=== PATIENT | female | born 1960 | race Caucasian/White ===

== ENCOUNTER 2016-11-23 03:25 | Emergency (ER) | payer BC ==
[2016-11-23] MEDS ORDERED: ONDANSETRON HCL IV 4 MG/2 ML VIAL IV ONE (03:44)
[2016-11-23] MEDS ORDERED: MAGNESIUM HYDROXIDE/AL HYDROX 10.0001 ML, LIDOCAINE VISC 2% 200 MG, PHENOBARB/HYOSCY/AT... PO ONE ×3 (03:45)
--- NOTE | 2016-11-23 03:51 | Emergency Department Record ---
History of Present Illness - General Chief Complaint: Abdominal Pain Stated Complaint: ABD PAIN Time Seen by Provider: 11/23/16 03:44 Source: Patient Mode of Arrival: Ambulatory - History of Present Illness Initial Comments: 56 yo female presents with 3 weeks of upper abdominal discomfort, burping, belching. She has a history of reflux. This is very similar. She states that when she develops allergies symptoms or takes antibiotics it seems to flare up. She saw her PCP Tuesday regarding a sinus infection with drainage and was started on Zithromax. She discussed the abdominal symptoms and she states her PCP is referring her to a GI specialist given she has had this many times in the past and she has never seen a specialist or been scoped for inflammation. She is on Prilosec daily in the morning. PCP is Dr Radha FONTENOT Complaint: Abdominal pain Onset/Timin -: Week(s) Location: Epigastric Radiation: Epigastric Severity: Moderate Quality: Burning Consistency: Intermittent Improves With: Nothing Worsens With: Nothing Context: Recent antibiotic use Associated Symptoms: Anorexia - Related Data Patient : No Home Medications Medication Instructions Recorded Confirmed Last Taken Clonazepam [Clonazepam] 0.5 mg PO DAILY PRN 01/04/16 11/23/16 1 Day Ago Albuterol Sulfate [Proair Hfa] 1 - 2 puff IH .EVERY 4-6 HOURS PRN 04/11/1611/23 1 Day Ago Azithromycin [Zithromax] 500 mg PO DAILY 04/11/16 11/23/16 1 Day Ago Cetirizine HCl [Zyrtec] 10 mg PO DAILY 04/11/16 11/23/16 1 Day Ago Fluticasone Propionate [Flonase] 2 spray EACH NARES DAILY 11/23/16 11/23/16 Unknown Omeprazole [Prilosec] 20 mg PO DAILY 11/23/16 11/23/16 Unknown Prednisone [Prednisone 20Mg] 20 mg PO ASDIR 11/23/16 11/23/16 Unknown Allergies Allergy/AdvReac Type Severity Reaction Status Date / Time Penicillins Allergy RASH Verified 04/11/16 12:04 Travel Screening - Travel/Exposure Within Last 30 Days Have you traveled within the last 30 days?: No Review of Systems Constitutional: Denies: Chills, Fever, Malaise, Weakness Eyes: Denies: Eye discharge ENT: Denies: Congestion, Throat pain Respiratory: Denies: Cough Cardiovascular: Denies: Chest pain, Palpitations, Syncope Endocrine: Denies: Fatigue, Polydipsia, Polyuria Gastrointestinal: Reports: As per HPI, Abdominal pain, Nausea. Denies: Constipation, Diarrhea, Hematemesis, Hematochezia, Melena, Vomiting Genitourinary: Denies: Dysuria Musculoskeletal: Denies: Arthralgia, Back pain, Joint swelling, Myalgia Skin: Denies: Bruising, Change in color Neurological: Denies: Confusion, Headache Psychiatric: Denies: Anxiety Hematological/Lymphatic: Denies: Blood Clots, Easy bleeding, Easy bruising, Swollen glands Past Medical History - SOCIAL HISTORY Smoking Status: Current every day smoker Alcohol Use: None Drug Use: None - RESPIRATORY Hx Respiratory Disorders: Yes Comment:: seasonal allergies - CARDIOVASCULAR Hx Cardio Disorders: No - NEURO Hx Neuro Disorders: No - GI Hx GI Disorders: No - Hx Genitourinary Disorders: No - ENDOCRINE Hx Endocrine Disorders: No - MUSCULOSKELETAL Hx Musculoskeletal Disorders: Yes Hx Back Injury: Yes - PSYCH Hx Psych Problems: Yes Hx Anxiety: Yes - HEMATOLOGY/ONCOLOGY Hx Hematology/Oncology Disorders: No Family Medical History Any Significant Family History?: No Family Hx Comment (NOT TO BE USED IN PLACE OF ITEMS BELOW): adopted-unknown Physical Exam - General General Appearance: Alert, Oriented x3, Cooperative, No acute distress Limitations: No limitations - Head Head exam: Normal inspection - Eye Eye exam: Normal appearance, PERRL. negative: Conjunctival injection, Periorbital swelling, Scleral icterus - ENT ENT exam: Normal exam, Mucous membranes moist, Normal external ear exam, Normal orophraynx, TM's normal bilaterally Ear exam: Normal external inspection. negative: External canal tenderness Nasal Exam: Discharge. negative: Normal inspection, Active bleeding, Dried blood, Sinus tenderness Mouth exam: Normal external inspection, Tongue normal Teeth exam: Normal inspection. negative: Dental caries Throat exam: Normal inspection. negative: Tonsillar erythema, Tonsillar exudate - Neck Neck exam: Normal inspection, Full ROM. negative: Tenderness - Respiratory Respiratory exam: Normal lung sounds bilaterally. negative: Respiratory distress - Cardiovascular Cardiovascular Exam: Regular rate, Normal rhythm, Normal heart sounds - GI/Abdominal GI/Abdominal exam: Soft, Normal bowel sounds, Tenderness (tender in the epigastric area, soft, no rebound or guarding). negative: Diminished bowel sounds, Distended, Guarding, Mass, Pulsatile mass, Rebound, Rigid - Rectal Rectal exam: Deferred - exam: Deferred - Extremities Extremities exam: Normal inspection, Full ROM, Normal capillary refill. negative: Tenderness - Back Back exam: Reports: Normal inspection, Full ROM. Denies: CVA tenderness (R), CVA tenderness (L), Muscle spasm, Rash noted, Tenderness - Neurological Neurological exam: Alert, Normal gait, Oriented X3 - Psychiatric Psychiatric exam: Normal affect, Normal mood - Skin Skin exam: Dry, Intact, Normal color, Warm Course Vital Signs 11/23/16 03:36 Temperature 98.4 F Pulse Rate 85 Respiratory 16 Rate Blood Pressure 169/87 Pulse Ox 98 - Reevaluation(s) Reevaluation #1: The patient recieved a GI cocktail and Zofran She reports she is nearly completely resolved regarding the symptoms. 11/23/16 04:04 Reevaluation #2: the labs were reviewed the CMP was negative for acute changes the WBC count was elevated at 15 the lipase was normal ranges 11/23/16 04:07 Given the elevated WBC count and 3 weeks of pain, CT scan ordered 11/23/16 04:11 Reevaluation #3: [facility] CT Cholelithiasis with gallstone seen lodged in the region of the gallbladder neck. CT findings CW acute cholecystitis. General Surgery paged. 11/23/16 05:57 Reevaluation #4: I ALEKSANDAR Robbins He recommends admission, IVF, IV antibiotics,NPO, he will take her to the OR this afternoon The patient agrees but will need to sign out for about one hour. She has a diabetic daughter that needs to eat and take her medications and she does not drive or have anyone to help her daughter. She will return through the ER to then be admitted I explained she is absolutely to not eat or drink and to return as soon as possible for admission. The patient was not given narcotics, her pain is controlled, no fever. She agrees to return DARYL and clearly understands the importance of returning for care of the gallbladder. 11/23/16 06:08 11/23/16 06:49 Medical Decision Making - Lab Data Result diagrams: 11/23/16 03:35 11/23/16 03:35 Disposition Disposition: Discharge Clinical Impression: Acute cholecystitis Disposition: Home, Self-Care Condition: (2) Stable Additional Instructions: Return immediately to be admitted for your gall bladder surgery Do not eat or drink anything. Forms: Patient Portal Access Time of Disposition: 06:11
[2016-11-23 03:55] LABS: BASO % 0.3 % (0-6); EOS % 2.4 % (0-6); GRAN % 71.4 % (47-80); HEMATOCRIT 45.8 % (35.0-47.0); HEMOGLOBIN 15.5 gm/dl (11.6-16.0); LYMPH % 16.7 % (16-45); MEAN CELL VOLUME 91.4 fl (81-97); MEAN CORPUSCULAR HEMOGLOBIN 30.9 pg (27-33); MEAN CORPUSCULAR HGB CONC 33.8 g/dl (32-36); MONO % 9.2 % (0-9); PLATELET COUNT 293 K/uL (130-400); RED BLOOD COUNT 5.01 M/uL (3.80-5.40); WHITE BLOOD COUNT W/O DIFF 15.6 K/uL (4.2-12.2)
[2016-11-23 04:05] LABS: ALB/GLOB RATIO 1.4 (1.1-1.8); ALBUMIN 4.4 gm/dL (3.5-5.0); ALKALINE PHOSPHATASE 88 U/L (38-126); ALT/SGPT 30 U/L (9-52); ANION GAP 12.6 (7-16); AST/SGOT 13 U/L (14-36); BILIRUBIN,TOTAL 0.71 mg/dL (0.2-1.3); BLOOD UREA NITROGEN 6 mg/dL (7-17); CARBON DIOXIDE 26.4 mmol/L (22-30); CREATININE 0.6 mg/dL (0.52-1.04); EST GLOMERULAR FILTRATION RATE > 60 ml/min; GLUCOSE,RANDOM 104 mg/dL (70-110); LIPASE 59 U/L (23-300); TOTAL PROTEIN 7.5 gm/dL (6.3-8.2)
[2016-11-23 05:15] LABS: URINE APPEARANCE CLEAR; URINE BILIRUBIN NEGATIVE (NEGATIVE); URINE BLOOD SMALL (NEGATIVE); URINE COLOR YELLOW; URINE GLUCOSE (UA) NEGATIVE (NEGATIVE); URINE KETONE NEGATIVE (NEGATIVE); URINE LEUKOCYTE ESTERASE TRACE (NEGATIVE); URINE NITRITE NEGATIVE (NEGATIVE); URINE PROTEIN NEGATIVE (NEGATIVE); URINE UROBILINOGEN 0.2 E.U./dL (0.20 - 1.00)
[2016-11-23 05:19] LABS: URINE BACTERIA FEW; URINE RBC 0 - 2 (NONE SEEN); URINE WBC 0 - 2 (0-2/hpf)
== END 2016-11-23 06:33 | disposition home or self-care (01) ==
LOC: ER 03:25
DX: K81.0 Acute cholecystitis (principal)
CPT/HCPCS: 99284 ×2; 96374; 83690; 85025; 80053; 81001; 74177; Q9967; J2405; J3490

== ENCOUNTER 2016-11-23 08:23 | Observation (INO) | payer BC ==
--- NOTE | 2016-11-23 08:40 | Emergency Department Record ---
History of Present Illness - General Chief Complaint: Recheck - Other Stated Complaint: BACK FOR SURGERY Time Seen by Provider: 11/23/16 08:35 Source: Patient Mode of arrival: Ambulatory Limitations: No limitations - History of Present Illness Initial Comments: 56 yo female presents to ED for evaluation for acute cholecystitis. Patient reports that she had to leave the ED last night to care for her diabetic daughter, and has returned to be admitted for surgery later today. Patient reports continued RUQ pain, denies vomiting symptoms. Onset/Timin -: Days(s) Initial Visit For: Other Returns Today for: Other Symptoms Since Prior Visit: No new symptoms Associated Symptoms: Abdominal pain Treatments Prior to Arrival: Other - Related Data Home Medications Medication Instructions Recorded Confirmed Last Taken Clonazepam [Clonazepam] 0.5 mg PO DAILY PRN 01/04/16 11/23/16 1 Day Ago Albuterol Sulfate [Proair Hfa] 1 - 2 puff IH .EVERY 4-6 HOURS PRN 04/11/1611/23 1 Day Ago Cetirizine HCl [Zyrtec] 10 mg PO DAILY 04/11/16 11/23/16 1 Day Ago Fluticasone Propionate [Flonase] 2 spray EACH NARES DAILY 11/23/16 11/23/16 Unknown Omeprazole [Prilosec] 20 mg PO DAILY 11/23/16 11/23/16 Unknown Prednisone [Prednisone 20Mg] 20 mg PO ASDIR 11/23/16 11/23/16 Unknown Allergies Allergy/AdvReac Type Severity Reaction Status Date / Time Penicillins Allergy RASH Verified 04/11/16 12:04 Travel Screening - Travel/Exposure Within Last 30 Days Have you traveled within the last 30 days?: No Review of Systems Constitutional: Denies: Chills, Fever, Malaise, Night sweats Eyes: Denies: Eye discharge, Eye pain ENT: Denies: Congestion, Ear pain, Epistaxis Respiratory: Denies: Cough, Dyspnea Cardiovascular: Denies: Chest pain, Dyspnea on exertion, Palpitations Endocrine: Denies: Fatigue, Heat or cold intolerance Gastrointestinal: Reports: Abdominal pain. Denies: Constipation, Vomiting Genitourinary: Denies: Dysuria, Frequency, Hematuria, Incontinence Musculoskeletal: Denies: Arthralgia, Back pain, Gout, Joint swelling Skin: Denies: Bruising, Change in color, Change in hair/nails Neurological: Denies: Abnormal gait, Confusion, Headache, Seizure Psychiatric: Denies: Anxiety Hematological/Lymphatic: Denies: Anemia, Blood Clots Past Medical History - SOCIAL HISTORY Smoking Status: Current every day smoker - RESPIRATORY Hx Respiratory Disorders: Yes Comment:: seasonal allergies - CARDIOVASCULAR Hx Cardio Disorders: No - NEURO Hx Neuro Disorders: No - GI Hx GI Disorders: No - Hx Genitourinary Disorders: No - ENDOCRINE Hx Endocrine Disorders: No - MUSCULOSKELETAL Hx Musculoskeletal Disorders: Yes Hx Back Injury: Yes - PSYCH Hx Psych Problems: Yes Hx Anxiety: Yes - HEMATOLOGY/ONCOLOGY Hx Hematology/Oncology Disorders: No Family Medical History Any Significant Family History?: No Family Hx Comment (NOT TO BE USED IN PLACE OF ITEMS BELOW): adopted-unknown Physical Exam - General General Appearance: Alert, Oriented x3, Cooperative Limitations: No limitations - Head Head exam: Atraumatic, Normocephalic, Normal inspection Head exam detail: negative: Abrasion, Contusion, Monet's sign, General tenderness, Hematoma, Laceration - Eye Eye exam: Normal appearance. negative: Conjunctival injection, Periorbital swelling, Periorbital tenderness, Scleral icterus - ENT Ear exam: negative: Auricular hematoma, Auricular trauma Nasal Exam: negative: Active bleeding, Discharge, Dried blood, Foreign body Mouth exam: negative: Drooling, Laceration, Muffled voice, Tongue elevation - Neck Neck exam: Normal inspection. negative: Meningismus, Tenderness - Respiratory Respiratory exam: Normal lung sounds bilaterally. negative: Rales, Respiratory distress, Rhonchi, Stridor - Cardiovascular Cardiovascular Exam: Regular rate, Normal rhythm, Normal heart sounds - GI/Abdominal GI/Abdominal exam: Soft, Tenderness (TTP RUQ, no rebound, or guarding present). negative: Rebound, Rigid - Rectal Rectal exam: Deferred - exam: Deferred - Extremities Extremities exam: Normal inspection. negative: Calf tenderness, Pedal edema, Tenderness - Back Back exam: Denies: CVA tenderness (R), CVA tenderness (L) - Neurological Neurological exam: Alert, Normal gait, Oriented X3 - Psychiatric Psychiatric exam: Normal affect, Normal mood - Skin Skin exam: Normal color. negative: Abrasion Type of lesion: negative: abrasion Course Vital Signs 11/23/16 08:25 Temperature 98.3 F Pulse Rate 82 Respiratory 20 Rate Blood Pressure 153/98 Pulse Ox 96 - Reevaluation(s) Reevaluation #1: 11/23/16 08:41 Patient is to be admitted for surgery this afternoon, will place orders for admission for surgery later this afternoon. Disposition Disposition: Admit Clinical Impression: Acute cholecystitis Disposition: Still a Patient at [facility] Decision to Admit: Admit from ER Decision to Admit Date: 11/23/16 Decision to Admit Time: 08:42 Condition: (2) Stable Forms: Patient Portal Access Time of Disposition: 08:42
[2016-11-23] MEDS ORDERED: MORPHINE SULFATE 5 MG/ML PFS IVP ONE (08:42)
[2016-11-23] MEDS ORDERED: ONDANSETRON HCL IV 4 MG/2 ML VIAL IVP ONE ×2 (08:42→19:28)
[2016-11-23] MEDS ORDERED: 0.9 % SODIUM CHLORIDE 1000ML 1,000 ML IV SCH (08:45)
[2016-11-23] MEDS ORDERED: MORPHINE SULFATE 5 MG/ML PFS IVP PRN (09:39)
[2016-11-23] MEDS ORDERED: ERTAPENEM SODIUM 1 G in 0.9 % SODIUM CHLORIDE 100ML 100 ML IVPB ONE (09:39)
[2016-11-23] MEDS ORDERED: ONDANSETRON HCL IV 4 MG/2 ML VIAL IVP PRN (09:39)
[2016-11-23] MEDS ORDERED: 0.9 % SODIUM CHLORIDE 1000ML 1,000 ML IV PRN (09:39)
[2016-11-23] MEDS ORDERED: FLUTICASONE PROPIONATE 50MCG NASAL 16 GM BTL SCH (10:00)
[2016-11-23] MEDS ORDERED: CLONAZEPAM 1MG TABLET PO PRN (10:30)
[2016-11-23] MEDS ORDERED: MECLIZINE 25 MG TABLET PO ONE (16:00)
[2016-11-23] MEDS ORDERED: FAMOTIDINE 20MG TABLET PO ONE (16:00)
[2016-11-23] MEDS ORDERED: ACETAMINOPHEN 1000MG/100 ML PREMIX IV ONE (16:00)
[2016-11-23] MEDS ORDERED: METOCLOPRAMIDE 10 MG TABLET PO ONE (16:00)
[2016-11-23] MEDS ORDERED: RINGERS SOLUTION,LACTATED 1,000 ML IV PRN (19:24)
[2016-11-23] MEDS ORDERED: HYDROCODONE/APAP 5/325MG TABLET PO PRN ×2 (19:25→19:26)
[2016-11-23] MEDS ORDERED: HYDROMORPHONE HCL 1 MG/ML CPJ IVP PRN (19:27)
[2016-11-23] MEDS ORDERED: MIDAZOLAM HCL 2MG/2ML VIAL IV ONE (20:19)
[2016-11-23] MEDS ORDERED: LIDOCAINE 2% MDV (20MG/ML) 20ML VIAL IV ONE (20:19)
[2016-11-23] MEDS ORDERED: BUPIVACAINE 0.25% W/EPI MPF 30ML VIAL IVP ONE ×2 (20:19)
[2016-11-23] MEDS ORDERED: FENTANYL PF 100MCG/2ML VIAL IV ONE (20:19)
[2016-11-23] MEDS ORDERED: LORATADINE 10 MG TABLET PO SCH (22:00)
[2016-11-24] MEDS ORDERED: PANTOPRAZOLE SODIUM 40 MG TABLET PO SCH (07:00)
--- NOTE | 2016-11-25 11:30 | Operative Note ---
DATE OF SURGERY: 11/23/2016 PREOPERATIVE DIAGNOSIS: Acute cholecystitis. POSTOPERATIVE DIAGNOSIS: Acute cholecystitis. OPERATION: Laparoscopic cholecystectomy. HISTORY: Patient is a 56-year-old female who has had ongoing right subcostal postprandial pain. She has had what sounds like biliary colic for the last year or so. She was always treated for GERD. She was seen in the ER last night where imaging study was done, which did show distended thickened gallbladder and pericholecystic fluid with cholelithiasis, all consistent with acute cholecystitis. We did discuss cholecystectomy versus medical management, and she desired surgical intervention. Risks include, but are not limited to, bleeding, infection, ductal injury, possible conversion to open, postoperative bile leak, and she understood this fully. PROCEDURE: Therefore, after consents were signed and questions answered, she was taking to the operating room and placed in a supine position. General anesthesia was induced per Department of Anesthesia. Patient then was prepped and draped in the usual sterile fashion. Adequate timeout was performed. She had received preop antibiotic. At this time, the supraumbilical region was anesthetized with a total of 3 mL of 0.25% Sensorcaine with epinephrine. A 2 cm supraumbilical incision made. This was carried down to the anterior rectus fascia. This was incised. Frandy clamps were placed on the fascial edges and brought up into the wound. Stay sutures of 0 Vicryl placed. Posterior rectus sheath was identified, incised and the peritoneal cavity was entered bluntly. At this time, a 10 mm blunt Trey port was placed and adequate pneumoperitoneum established. Under direct visualization, an additional 5 mm epigastric and two 5 mm right subcostal ports were placed. Gallbladder was identified in the subhepatic space. It was very tense and distended and ungraspable. Therefore, a Birman needle was used to decompress the gallbladder about 80 mL of clear bile consistent with gallbladder hydrops. At this time using traumatic graspers, the gallbladder was retracted in a cephalad and lateral direction. The hepatocystic triangle is thoroughly dissected out. There is no aberrant anatomy. No posterior ductal structures. The cystic duct and cystic artery were clearly identified. The was a large right hepatic artery coursing on the lateral aspect. The cystic duct and cystic artery were doubly clipped and cut in standard fashion. The gallbladder was essentially peeled off the liver bed. This was placed in an EndoCatch bag and brought out infraumbilically. The right upper quadrant was irrigated with approximately 1000 mL of sterile saline. There was no bleeding , no bile leaking, and no bowel injury noted. Patient was leveled out and pneumoperitoneum was released. All ports were removed. The fascia was closed with 0 Vicryl in a [id number] fashion. The skin in all 4 ports closed with 4-0 Vicryl. She was taken to recovery room in satisfactory condition.FINDINGS AT TIME OF SURGERY: Gallbladder hydrops. CC: DO ZENY Cuellar
== END 2016-11-23 20:20 | disposition home or self-care (01) ==
LOC: ER 08:23 → MEDSURG 09:35
PROVIDERS: ADMIT Surgery; ATTEND Surgery
DX: K80.12 Calculus of gallbladder with acute and chronic cholecystitis without obstruction (principal)
CPT/HCPCS: 47562; 00790; 99285 ×2; 96374; 96375; 93005; 93010; G0378; J1335; J2405; J3010; J2270; J7030

== ENCOUNTER 2016-11-27 09:38 | Emergency (ER) | payer BC ==
[2016-11-27] MEDS ORDERED: 0.9 % SODIUM CHLORIDE 1,000 ML BAG IV ONE (09:52)
[2016-11-27] MEDS ORDERED: MORPHINE SULFATE 5 MG/ML PFS IVP ONE (09:52)
[2016-11-27] MEDS ORDERED: ONDANSETRON HCL IV 4 MG/2 ML VIAL IVP ONE (09:58)
--- NOTE | 2016-11-27 09:58 | Emergency Department Record ---
History of Present Illness - General Chief Complaint: Recheck - Other Stated Complaint: POST OP PAIN/GALL BLADDER REMOVED Time Seen by Provider: 11/27/16 09:51 Source: Patient, Family Mode of arrival: Ambulatory Limitations: No limitations - History of Present Illness Initial Comments: 56 yo female presents with pain in the RUQ. She had her gallbladder removed on Tuesday evening and went home the same evening. No fevers or chills. No nausea or vomiting. No redness to the sites. No cough or shortness of breath. She is eating and drinking. She was concerned because she had 2 hours before her next pain medication dose and she was having pain. Dr Robbins is her surgeon. -: Days(s) Symptoms Since Prior Visit: Other (similar) Associated Symptoms: Abdominal pain - Related Data Home Medications Medication Instructions Recorded Confirmed Last Taken Fluticasone Propionate [Flonase] 2 spray EACH NARES DAILY 11/23/16 11/27/1601/10 Hydrocodone/Acetaminophen [[place] 1 tab PO Q6H PRN 11/27/16 11/27/16 11/27/16 5mg/325mg] Allergies Allergy/AdvReac Type Severity Reaction Status Date / Time Penicillins Allergy RASH Verified 11/27/16 09:41 Review of Systems Constitutional: Denies: Chills, Fever, Malaise, Night sweats, Weakness Eyes: Denies: Eye discharge, Eye pain, Photophobia, Vision change ENT: Denies: Congestion, Throat pain Respiratory: Denies: Cough, Dyspnea, Hemoptysis, Stridor, Wheezes Cardiovascular: Denies: Chest pain, Palpitations, Syncope, Other Endocrine: Denies: Fatigue Gastrointestinal: Reports: Abdominal pain. Denies: Diarrhea, Hematemesis, Nausea, Vomiting Genitourinary: Denies: Dysuria Musculoskeletal: Denies: Arthralgia, Back pain, Joint swelling, Myalgia Skin: Denies: Bruising, Change in color, Pruritus Neurological: Denies: Headache Psychiatric: Denies: Anxiety Hematological/Lymphatic: Denies: Blood Clots, Easy bleeding, Easy bruising, Swollen glands Past Medical History - SOCIAL HISTORY Smoking Status: Light tobacco smoker (<10/day) - RESPIRATORY Hx Respiratory Disorders: Yes Hx Bronchitis: Yes Comment:: seasonal allergies - CARDIOVASCULAR Hx Cardio Disorders: No - NEURO Hx Neuro Disorders: Yes Hx Dizziness: Yes (do noit lay patient of left side) Hx of Migraines: Yes Comment:: HX Vertigo, started 2 years ago states from allergys. - GI Hx GI Disorders: Yes Hx Abdominal Pain: Yes Hx Reflux: Yes - Hx Genitourinary Disorders: No - ENDOCRINE Hx Endocrine Disorders: No Hx Diabetes: No Hx Thyroid Disease: No - MUSCULOSKELETAL Hx Musculoskeletal Disorders: Yes Hx Back Injury: Yes - PSYCH Hx Psych Problems: Yes Hx Anxiety: Yes - HEMATOLOGY/ONCOLOGY Hx Hematology/Oncology Disorders: No Family Medical History Family Hx Comment (NOT TO BE USED IN PLACE OF ITEMS BELOW): adopted-unknown Physical Exam - General General Appearance: Alert, Oriented x3, Cooperative, No acute distress Limitations: No limitations - Head Head exam: Normal inspection - Eye Eye exam: Normal appearance, PERRL. negative: Conjunctival injection, Periorbital swelling - ENT ENT exam: Normal exam, Mucous membranes moist, Normal external ear exam, Normal orophraynx Ear exam: Normal external inspection. negative: External canal tenderness Nasal Exam: Normal inspection. negative: Discharge, Sinus tenderness Mouth exam: Normal external inspection, Tongue normal Teeth exam: Normal inspection. negative: Dental caries Throat exam: Normal inspection. negative: Tonsillar erythema, Tonsillar exudate - Neck Neck exam: Normal inspection, Full ROM. negative: Tenderness - Respiratory Respiratory exam: Normal lung sounds bilaterally. negative: Accessory muscle use, Chest wall tenderness, Respiratory distress, Rhonchi, Stridor, Wheezes - Cardiovascular Cardiovascular Exam: Regular rate, Normal rhythm, Normal heart sounds - GI/Abdominal GI/Abdominal exam: Soft, Tenderness (Mild tenderness to the RUQ, soft remaining abdoment without tenderness). negative: Diminished bowel sounds, Distended, Rebound - Rectal Rectal exam: Deferred - exam: Deferred - Extremities Extremities exam: Normal inspection, Full ROM, Normal capillary refill. negative: Pedal edema, Tenderness - Back Back exam: Reports: Normal inspection, Full ROM. Denies: Muscle spasm, Rash noted, Tenderness - Neurological Neurological exam: Alert, Normal gait, Oriented X3 - Psychiatric Psychiatric exam: Normal affect, Normal mood. negative: Agitated, Anxious - Skin Skin exam: Dry, Intact, Normal color, Warm Course - Reevaluation(s) Reevaluation #1: Vitals reviewed No tachycardia or hypoxia BP noted to be elevated 11/27/16 10:01 Reevaluation #2: The patient reports she took Motrin just prior to arrival. Her pain now is nearly completely gone. The Morphine will be cancelled. 11/27/16 10:14 Reevaluation #3: The CBC,CMP and Lipase were reviewed. No acute changes on the labs. Normal WBC count and LFTs. Will page her surgeon to discuss the case. 11/27/16 10:37 Reevaluation #4: I SW Dr Robbins. We discussed the examination with very soft abdomen with mild RUQ tenderness, normal CBC and CMP and Lipase. Her examination is very re- assuring at this point in time with normal labs, no fever, eating and drinking. It her pain increases, fever, vomits she is to go to [facility] [place] to be evaluated for a surgical consult. No imaging was recommended at this time by Dr Robbins given her general well appearance, very mild findings on examination, and normal vitals and labs. 11/27/16 10:48 Medical Decision Making - Lab Data Result diagrams: 11/27/16 10:05 11/27/16 10:05 Disposition Disposition: Discharge Clinical Impression: Post-op pain Disposition: Home, Self-Care Condition: (1) Good Instructions: Acute Abdominal Pain (ED) Additional Instructions: Immediately go to [facility] if you pain is not controlled, any fever or vomiting You will have a surgical consultation at that time Continue your current medications and rest Continue your post operative diet as directed Forms: Patient Portal Access Time of Disposition: 10:52
[2016-11-27 10:11] LABS: BASO % 0.5 % (0-6); EOS % 7.8 % (0-6); GRAN % 71.4 % (47-80); HEMATOCRIT 42.2 % (35.0-47.0); HEMOGLOBIN 14.2 gm/dl (11.6-16.0); LYMPH % 12.6 % (16-45); MEAN CELL VOLUME 91.9 fl (81-97); MEAN CORPUSCULAR HEMOGLOBIN 30.9 pg (27-33); MEAN CORPUSCULAR HGB CONC 33.6 g/dl (32-36); MEAN PLATELET VOLUME 10.5 fl (7.4-10.4); MONO % 7.7 % (0-9); PLATELET COUNT 297 K/uL (130-400); RED BLOOD COUNT 4.59 M/uL (3.80-5.40); RED CELL DISTRIBUTION WIDTH 13.9 % (11.5-14.5); WHITE BLOOD COUNT W/O DIFF 10.8 K/uL (4.2-12.2)
[2016-11-27 10:22] LABS: ALB/GLOB RATIO 1.4 (1.1-1.8); ALKALINE PHOSPHATASE 93 U/L (38-126); ALT/SGPT 31 U/L (9-52); ANION GAP 9.7 (7-16); AST/SGOT 13 U/L (14-36); BILIRUBIN,TOTAL 0.64 mg/dL (0.2-1.3); BLOOD UREA NITROGEN 7 mg/dL (7-17); CARBON DIOXIDE 27.3 mmol/L (22-30); CREATININE 0.6 mg/dL (0.52-1.04); EST GLOMERULAR FILTRATION RATE > 60 ml/min; GLUCOSE,RANDOM 106 mg/dL (70-110); INR 0.95; LIPASE 20 U/L (23-300); PARTIAL THROMBOPLASTIN TIME 29.8 SECONDS (24.5-39.1); PROTHROMBIN TIME (PATIENT) 10.7 SECONDS (9.5-12.1); TOTAL PROTEIN 6.8 gm/dL (6.3-8.2)
[2016-11-27 10:36] LABS: URINE APPEARANCE CLEAR; URINE BILIRUBIN NEGATIVE (NEGATIVE); URINE BLOOD SMALL (NEGATIVE); URINE COLOR YELLOW; URINE GLUCOSE (UA) NEGATIVE (NEGATIVE); URINE KETONE NEGATIVE (NEGATIVE); URINE LEUKOCYTE ESTERASE NEGATIVE (NEGATIVE); URINE NITRITE NEGATIVE (NEGATIVE); URINE PROTEIN NEGATIVE (NEGATIVE); URINE UROBILINOGEN 0.2 E.U./dL (0.20 - 1.00)
[2016-11-27 10:47] LABS: URINE WBC 0 - 2 (0-2/hpf)
== END 2016-11-27 11:22 | disposition home or self-care (01) ==
LOC: ER 09:38
DX: G89.18 Other acute postprocedural pain (principal); R10.11 Right upper quadrant pain
CPT/HCPCS: 80053; 81001; 83690; 85025; 85610; 85730; 99284; J7030